=== PATIENT | male | born 1965 | race African-American/Black ===

== ENCOUNTER 2024-05-26 22:05 | Emergency (ER) | payer MEDICAID, OTHER ==
[~2024-05-26] VITALS: Ht 203.2 cm; Wt 104.0 kg
[~2024-05-26 22:05] MED LIST: BENA10TA74
[2024-05-26 22:13] VITALS: O2SAT 99
[2024-05-26 23:15] LABS: BASOPHILS % 1.2 % (0.0-2.0); EOSINOPHILS % 0.9 % (0.0-5.0); HEMATOCRIT. 35.1 % (42.0-52.0); HEMOGLOBIN. 11.5 g/dL (14.0-18.0); LYMPHOCYTES % 27.2 % (20.0-50.0); MEAN CORPUSCULAR HEMOGLOBIN 29.3 pg (28.0-32.0); MEAN CORPUSCULAR HGB CONC 32.7 g/dL (31.0-37.0); MEAN CORPUSCULAR VOLUME 89.6 fL (80.0-94.0); MEAN PLATELET VOLUME 7.7 fl (7.4-10.4); MONOCYTES % 7.9 % (2.0-8.0); NEUTROPHILS % 62.8 % (40.0-76.0); PLATELET 210 x1000/uL (130-400); RED BLOOD CELL COUNT 3.92 mill/uL (4.7-6.1); RED CELL DISTRIBUTION WIDTH 18.6 % (11.6-14.6); WHITE BLOOD COUNT 4.7 x1000/uL (4.5-11.0)
[2024-05-26 23:22] LABS: CHLORIDE 105 mEq/L (98-107); POTASSIUM 3.7 mEq/L (3.5-5.1); SODIUM 140 mEq/L (136-145)
[2024-05-26 23:23] LABS: CARBON DIOXIDE 33 mEq/L (21-32)
[2024-05-26 23:24] LABS: CALCIUM 9.4 mg/dL (8.7-10.4)
[2024-05-26] MEDS: ASPIRIN 325MG EC TABLET PO NR (23:26)
[2024-05-26 23:28] LABS: GLUCOSE 99 mg/dL (70-105)
[2024-05-26 23:29] LABS: UREA NITROGEN BLOOD 15 mg/dL (9-23)
[2024-05-26 23:30] LABS: TROPONIN I HIGH SENSITIVITY 4 ng/L (3.0-53)
[2024-05-26 23:31] LABS: ETHANOL BLOOD < 10 mg/dL (<10)
[2024-05-26 23:39] LABS: INR 0.9; PARTIAL THROMBOPLASTIN TIME 24.1 sec (23.4-31.0); PROTHROMBIN TIME 10.3 sec (9.6-11.0)
[2024-05-27 00:58] LABS: *AMPHETAMINES SCREEN URINE NEGATIVE (NEGATIVE); *BARBITURATES SCREEN URINE NEGATIVE (NEGATIVE); *BENZODIAZEPINES SCREEN URINE NEGATIVE (NEGATIVE); *COCAINE SCREEN URINE NEGATIVE (NEGATIVE); CANNABINOID URINE SCREEN NEGATIVE (NEGATIVE); ECSTASY MDMA SCREEN URINE NEGATIVE (NEGATIVE); METHADONE URINE SCREEN NEGATIVE (NEGATIVE); OPIATES URINE SCREEN NEGATIVE (NEGATIVE); PHENCYCLIDINE URINE SCREEN NEGATIVE (NEGATIVE)
[2024-05-27 02:30] LABS: TROPONIN I HIGH SENSITIVITY 5 ng/L (3.0-53)
[2024-05-27] MEDS ORDERED: ASPI-1497 MT (02:52)
[2024-05-27 05:34] VITALS: BP 145/89; PULSE 61; RESP 13; TEMP 37; O2SAT 98
== END 2024-05-27 06:22 ==
LOC: ER 22:05
DX: R07.89 Other chest pain (principal); J90 Pleural effusion, not elsewhere classified; E11.9 Type 2 diabetes mellitus without complications; I10 Essential (primary) hypertension; Z79.82 Long term (current) use of aspirin; Z85.028 Personal history of other malignant neoplasm of stomach; Z85.118 Personal history of other malignant neoplasm of bronchus and lung; Z79.899 Other long term (current) drug therapy
CPT/HCPCS: 80048; 80320; 83880; 85025; 85610; 85730; 84484 ×2; 36415 ×2; 71045; 93005; 99285; 80305; A4663; Z7610 ×2; A4606; G0480